=== PATIENT | male | born 1975 | race African-American/Black ===

== ENCOUNTER 2025-07-02 13:18 | Inpatient (IN) | payer SELFPAY ==
[~2025-07-02] VITALS: Ht 180.3 cm; Wt 86.6 kg
[2025-07-02] VITALS (9 sets, daily range): BP systolic 164–203; BP diastolic 86–115; PULSE 100–111; RESP 14–23; TEMP 36.8–37.1408; O2SAT 99–100
[2025-07-02 14:08] LABS: BG BASE EXCESS -4.9 mmol/L (-2.0-3.0); BG CARBOXYHEMOGLOBIN 0.5 % (0.5-1.5); BG DEOXYHEMOGLOBIN 4.3 % (0.0-5.0); BG FRACTION INSPIRED OXYGEN 21; BG HCO3 ACT 19.1 mmol/L (21.0-28.0); BG METHEMOGLOBIN 0.3 % (0.5-1.5); BG OXYGEN SATURATION 95.7 % (94.0-98.0); BG OXYHEMOGLOBIN 94.9 % (94.0-98.0); BG PCO2 32.4 mmHg (35.0-48.0); BG PH 7.388 (7.350-7.450); BG PO2 79.6 mmHg (83.0-108.0); BG SAMPLE SITE RIGHT BRACHIAL; BG TOTAL HEMOGLOBIN 14.0 g/dL (13.5-17.5); BG VENT MODE ROOM AIR
[2025-07-02 14:19] LABS: HEMATOCRIT. 39.8 % (42.0-52.0); HEMOGLOBIN. 13.0 g/dL (14.0-18.0); MEAN PLATELET VOLUME 10.0 fl (7.4-10.4); PLATELET 293 x1000/uL (130-400); RED BLOOD CELL COUNT 4.34 mill/uL (4.7-6.1); RED CELL DISTRIBUTION WIDTH 13.5 % (11.6-14.6)
[2025-07-02 14:33] LABS: CREATININE 1.8 mg/dL (0.6-1.3)
[2025-07-02 14:35] LABS: LYMPHOCYTES % MANUAL 4.0 % (20.0-50.0); MONOCYTES % MANUAL 3.0 % (2.0-8.0); NEUTROPHILS % MANUAL 93.0 % (45.0-75.0); PLATELET ESTIMATE NORMAL
[2025-07-02 15:03] LABS: TROPONIN I HIGH SENSITIVITY 5 ng/L (3.0-53); UREA NITROGEN BLOOD 14 mg/dL (9-23)
[2025-07-02] MEDS: SODIUM CHLORIDE 0.9% 1,000 ML IV ONE (15:09)
[2025-07-02] MEDS: LABETALOL 5MG/ML 4ML INJ IV ONE (15:09)
[2025-07-02] MEDS: ONDANSETRON HCL 4MG/2ML INJ IV ONE (15:09)
[2025-07-02] MEDS ORDERED: DEXTROSE 50% WATER 50ML SYRINGE IV PRN (16:45)
[2025-07-02] MEDS ORDERED: MAGNESIUM 2 G PREMIX 50 ML IV PRN (16:45)
[2025-07-02] MEDS ORDERED: BLOOD SUGAR DIAGNOSTIC STRIP TEST PRN (16:45)
[2025-07-02] MEDS ORDERED: POTASSIUM CHLORIDE 40 MEQ in SODIUM CHLORIDE 0.9% 230 ML IV PRN (16:45)
[2025-07-02] MEDS ORDERED: INSULIN REGULAR (DRIP) 100 UNITS in SODIUM CHLORIDE 0.9% 99 ML IV SCH (16:45)
[2025-07-02] MEDS: METOCLOPRAMIDE HCL 10MG/2ML VIAL IV ONE (17:19)
[2025-07-02] MEDS: MORPHINE SULFATE 4 MG/ML INJ (FOR IV/IM USE) IV ONE (17:20)
[2025-07-02 17:28] LABS: PHOSPHORUS 3.6 mg/dL (2.5-4.9)
[2025-07-02] MEDS: INSULIN REGULAR 100U/100ML PMX 100 ML IV SCH (17:30)
[2025-07-02] MEDS: BLOOD SUGAR DIAGNOSTIC STRIP TEST SCH (17:33)
[2025-07-02] MEDS: SODIUM CHLORIDE 0.9% 1,000 ML IV SCH (17:33)
[2025-07-02] MEDS ORDERED: INSULIN REGULAR (HUMULIN R) 1000UNITS/10ML VIAL IV NR (18:45)
[2025-07-02] MEDS: INSULIN REGULAR (HUMULIN R) 1000UNITS/10ML VIAL IV ONE (18:53)
[2025-07-02] MEDS: HYDRALAZINE 20MG/ML VIAL IV PRN (23:27)
[2025-07-02] MEDS: DEXT 5%/0.9% NACL 1,000 ML IV SCH (23:28)
[2025-07-03] VITALS (74 sets, daily range): BP systolic 132–206; BP diastolic 76–120; PULSE 96–141; RESP 8–30; TEMP 36.8–37.4; O2SAT 95–100
[2025-07-03 00:32] LABS: BASOPHILS % 0.4 % (0.0-2.0); EOSINOPHILS % 0.0 % (0.0-5.0); HEMATOCRIT. 41.4 % (42.0-52.0); HEMOGLOBIN. 13.0 g/dL (14.0-18.0); LYMPHOCYTES % 14.6 % (20.0-50.0); MEAN PLATELET VOLUME 11.2 fl (7.4-10.4); MONOCYTES % 10.8 % (2.0-8.0); NEUTROPHILS % 74.2 % (40.0-76.0); PLATELET 217 x1000/uL (130-400); RED BLOOD CELL COUNT 4.38 mill/uL (4.7-6.1); RED CELL DISTRIBUTION WIDTH 13.4 % (11.6-14.6)
[2025-07-03 00:41] LABS: CREATININE 1.6 mg/dL (0.6-1.3)
[2025-07-03 00:42] LABS: UREA NITROGEN BLOOD 13 mg/dL (9-23)
[2025-07-03 00:44] LABS: PHOSPHORUS 1.4 mg/dL (2.5-4.9)
[2025-07-03] MEDS: HYDRALAZINE 20MG/ML VIAL IV PRN (01:05)
[2025-07-03] MEDS: LABETALOL 5MG/ML 4ML INJ IV NR ×2 (04:26→08:31)
[2025-07-03] MEDS: ONDANSETRON HCL 4MG/2ML INJ IV PRN (06:49)
[2025-07-03 07:30] LABS: BASOPHILS % 0.4 % (0.0-2.0); EOSINOPHILS % 0.0 % (0.0-5.0); HEMATOCRIT. 37.8 % (42.0-52.0); HEMOGLOBIN. 12.0 g/dL (14.0-18.0); LYMPHOCYTES % 10.8 % (20.0-50.0); MEAN PLATELET VOLUME 11.0 fl (7.4-10.4); MONOCYTES % 7.7 % (2.0-8.0); NEUTROPHILS % 81.1 % (40.0-76.0); PLATELET 131 x1000/uL (130-400); RED BLOOD CELL COUNT 3.99 mill/uL (4.7-6.1); RED CELL DISTRIBUTION WIDTH 13.9 % (11.6-14.6)
[2025-07-03 07:49] LABS: BG BASE EXCESS -2.1 mmol/L (-2.0-3.0); BG CARBOXYHEMOGLOBIN 0.1 % (0.5-1.5); BG DEOXYHEMOGLOBIN 1.6 % (0.0-5.0); BG FLOW(L/min) 2.00 L/min; BG FRACTION INSPIRED OXYGEN 28; BG HCO3 ACT 20.5 mmol/L (21.0-28.0); BG METHEMOGLOBIN 0.3 % (0.5-1.5); BG OXYGEN SATURATION 98.4 % (94.0-98.0); BG OXYHEMOGLOBIN 98.0 % (94.0-98.0); BG PCO2 29.0 mmHg (35.0-48.0); BG PH 7.468 (7.350-7.450); BG PO2 110.6 mmHg (83.0-108.0); BG SAMPLE SITE RIGHT BRACHIAL; BG TOTAL HEMOGLOBIN 12.4 g/dL (13.5-17.5); BG VENT MODE NASAL CANNULA
[2025-07-03 07:54] LABS: CREATININE 1.6 mg/dL (0.6-1.3)
[2025-07-03 07:55] LABS: UREA NITROGEN BLOOD 11 mg/dL (9-23)
[2025-07-03 07:57] LABS: PHOSPHORUS 1.3 mg/dL (2.5-4.9)
[2025-07-03] MEDS: METOCLOPRAMIDE HCL 10MG/2ML VIAL IV NR (08:31)
[2025-07-03] MEDS: KCL 20MEQ/100ML PREMIX 100 ML IV PRN (08:50)
[2025-07-03] MEDS: METOPROLOL TARTRATE 50MG TABLET PO SCH ×2 (09:45→20:36)
[2025-07-03] MEDS: NIFEDIPINE XL 60MG TAB PO SCH (09:45)
[2025-07-03] MEDS: SODIUM PHOSPHATE 15 MMOL in SODIUM CHLORIDE 0.9% 245 ML IV PRN (10:11)
[2025-07-03 11:25] LABS: CLARITY URINE CLEAR (CLEAR); COLOR URINE YELLOW (YELLOW); GLUCOSE URINE 3+ (NEGATIVE); KETONES URINE 1+ (NEGATIVE); LEUKOCYTE ESTERASE URINE NEGATIVE (NEGATIVE); NITRITE URINE NEGATIVE (NEGATIVE); OCCULT BLOOD URINE NEGATIVE (NEGATIVE); PH URINE 5.0 (4.5-8.0); PROTEIN URINE 3+ (NEGATIVE); SPECIFIC GRAVITY URINE 1.022 (1.005-1.030); UROBILINOGEN URINE 0.2 E.U./dL (0.2-1.0)
[2025-07-03 11:36] LABS: COARSE GRANULAR CASTS URINE 0-5 /lpf; FINE GRANULAR CASTS URINE 0-5 /lpf
[2025-07-03 11:37] LABS: RBC URINE NONE SEEN /hpf (0-2); WBC URINE 0-2 /hpf (0-2)
[2025-07-03 11:38] LABS: BACTERIA URINE NONE SEEN; SQUAMOUS EPITHELIAL CELL URINE RARE /lpf (RARE/1+)
[2025-07-03 11:47] LABS: *AMPHETAMINES SCREEN URINE NEGATIVE (NEGATIVE); *BARBITURATES SCREEN URINE NEGATIVE (NEGATIVE); *BENZODIAZEPINES SCREEN URINE NEGATIVE (NEGATIVE); *COCAINE SCREEN URINE NEGATIVE (NEGATIVE); CANNABINOID URINE SCREEN NEGATIVE (NEGATIVE); ECSTASY MDMA SCREEN URINE NEGATIVE (NEGATIVE); METHADONE URINE SCREEN NEGATIVE (NEGATIVE); OPIATES URINE SCREEN PRESUMPTIVE POSITIVE (NEGATIVE); PHENCYCLIDINE URINE SCREEN NEGATIVE (NEGATIVE)
[2025-07-03 12:20] LABS: CREATININE 1.5 mg/dL (0.6-1.3); UREA NITROGEN BLOOD 11 mg/dL (9-23)
[2025-07-03] MEDS: HYDRALAZINE HCL 100MG TABLET PO SCH (13:30)
[2025-07-03] MEDS ORDERED: DEXTROSE 50% WATER 50ML SYRINGE IV PRN (14:45)
[2025-07-03] MEDS: INSULIN GLARGINE 100 UNITS/ML SUBCUT SCH (15:09)
[2025-07-03] MEDS: BLOOD SUGAR DIAGNOSTIC STRIP TEST SCH (16:53)
[2025-07-03 16:58] LABS: PHOSPHORUS 3.5 mg/dL (2.5-4.9)
[2025-07-03] MEDS: INSULIN LISPRO 100 UNITS/ML SUBCUT SCH (18:02)
[2025-07-04] VITALS (42 sets, daily range): BP systolic 132–195; BP diastolic 72–103; PULSE 95–122; RESP 13–23; TEMP 37.1–37.3; O2SAT 94–98
[2025-07-04] MEDS ORDERED: NIFE-32 MT (07:48)
[2025-07-04] MEDS ORDERED: HYDR100T11 MT (07:48)
[2025-07-04 11:02] LABS: BASOPHILS % 1.4 % (0.0-2.0); EOSINOPHILS % 0.3 % (0.0-5.0); HEMATOCRIT. 35.9 % (42.0-52.0); HEMOGLOBIN. 11.6 g/dL (14.0-18.0); LYMPHOCYTES % 15.6 % (20.0-50.0); MEAN PLATELET VOLUME 10.4 fl (7.4-10.4); MONOCYTES % 8.4 % (2.0-8.0); NEUTROPHILS % 74.3 % (40.0-76.0); PLATELET 249 x1000/uL (130-400); RED BLOOD CELL COUNT 3.89 mill/uL (4.7-6.1); RED CELL DISTRIBUTION WIDTH 13.8 % (11.6-14.6)
[2025-07-04 11:11] LABS: CREATININE 1.4 mg/dL (0.6-1.3)
[2025-07-04 11:12] LABS: UREA NITROGEN BLOOD 8 mg/dL (9-23)
== END 2025-07-04 14:15 | disposition home or self-care (01) | DRG 420 ==
LOC: ER 13:18 → EDBEDREQSVC 17:41 → EDBEDREQ 17:41 → EDBEDREQTM 17:41 → EDBEDREQ 17:42 → EDBEDREQTM 17:42 → EDBEDREQSVC 17:42 → ENRESERV 18:37 → CVICU 18:37
PROVIDERS: ADMIT Internal Medicine; ATTEND Internal Medicine
DX: E10.10 Type 1 diabetes mellitus with ketoacidosis without coma (principal); N17.0 Acute kidney failure with tubular necrosis; I10 Essential (primary) hypertension; I16.0 Hypertensive urgency; D72.829 Elevated white blood cell count, unspecified; Z86.73 Personal history of transient ischemic attack (TIA), and cerebral infarction without residual deficits; Z79.4 Long term (current) use of insulin
CPT/HCPCS: 36415; 36600; 80048; 80305; 81003; 82010; 82375; 82805; 82962; 83036; 83735; 83930; 84100; 84145; 84484; 85025; 93005; 99291; A4606; J0360; J1815; J2270; J2405; J2765; J3480; J3490; J7030; J7042